=== PATIENT | male | born 1995 | race American Indian/Alaskan Native ===

== ENCOUNTER 2022-09-22 14:20 | Emergency (ER) | payer MEDICAID ==
[~2022-09-22] VITALS: Ht 177.8 cm; Wt 118.0 kg
[2022-09-22 14:49] VITALS: BP 183/109
[2022-09-22] MEDS ORDERED: IBUPROFEN 600MG TABLET PO STA (16:37)
[2022-09-22 17:04] LABS: HEMATOCRIT. 45.8 % (42.0-52.0); HEMOGLOBIN. 16.1 g/dL (14.0-18.0); MEAN CORPUSCULAR VOLUME 88.4 fL (80.0-94.0); MEAN PLATELET VOLUME 7.2 fl (7.4-10.4); PLATELET 468 x1000/uL (130-400); RED BLOOD CELL COUNT 5.18 mill/uL (4.7-6.1); RED CELL DISTRIBUTION WIDTH 13.5 % (11.6-14.6)
[2022-09-22 17:14] LABS: CHLORIDE 102 mEq/L (98-107)
[2022-09-22] MEDS ORDERED: SULF1TAB48 MT (17:30)
[2022-09-22 18:22] LABS: PLATELET ESTIMATE INCREASED
== END 2022-09-22 17:57 | disposition home or self-care (01) ==
LOC: ER 14:20
DX: L02.211 Cutaneous abscess of abdominal wall (principal)
CPT/HCPCS: 36415; 80053; 85025; 99283; Z7610

== ENCOUNTER 2022-12-30 20:02 | Emergency (ER) | payer MEDICAID ==
[~2022-12-30] VITALS: Ht 177.8 cm; Wt 113.0 kg
[~2022-12-30 20:02] MED LIST: SULF1TAB48 MT
[2022-12-30 20:45] VITALS: BP 178/120
[2022-12-30] MEDS ORDERED: TETANUS, DIPHTHERIA, PERTUSSIS VAC/PF 0.5ML (>10YR OLD) IM ONE (22:45)
[2022-12-30] MEDS ORDERED: LIDOCAINE HCL/PF 1% 10 MG/ML 5ML VIAL INFIL ONE (22:45)
[2022-12-30] MEDS ORDERED: BACITRACIN ZINC OINT UDPKT TOP ONE ×2 (22:45→23:15)
[2022-12-31] MEDS ORDERED: IBUP-2029 PO (00:28)
== END 2022-12-31 00:48 | disposition home or self-care (01) ==
LOC: ER 20:02
DX: S61.217A Laceration without foreign body of left little finger without damage to nail, initial encounter (principal); W26.0XXA Contact with knife, initial encounter; Y93.89 Activity, other specified; Y92.89 Other specified places as the place of occurrence of the external cause; Y99.8 Other external cause status
CPT/HCPCS: 12001; 90471; 90715; 99283; J3490; Z7610

== ENCOUNTER 2023-01-11 16:11 | Emergency (ER) | payer MEDICAID ==
[~2023-01-11] VITALS: Ht 175.3 cm; Wt 118.0 kg
[~2023-01-11 16:11] MED LIST changes: +IBUP-2029 PO
[2023-01-11] MEDS ORDERED: IBUPROFEN 600MG TABLET PO STA (17:03)
[2023-01-11 17:19] VITALS: BP 192/115
[2023-01-11] MEDS ORDERED: NAPR-681 PO (18:22)
[2023-01-11] MEDS ORDERED: SULF1TAB48 PO (18:22)
== END 2023-01-11 18:47 | disposition home or self-care (01) ==
LOC: ER 16:11
DX: S61.217D Laceration without foreign body of left little finger without damage to nail, subsequent encounter (principal); Z48.02 Encounter for removal of sutures; X58.XXXD Exposure to other specified factors, subsequent encounter
CPT/HCPCS: 99283

== ENCOUNTER 2023-01-18 04:46 | Emergency (ER) | payer MEDICAID ==
[~2023-01-18] VITALS: Ht 177.8 cm; Wt 95.0 kg
[~2023-01-18 04:46] MED LIST changes: +NAPR-681 PO; +SULF1TAB48 PO
[2023-01-18 04:49] VITALS: BP 121/69
[2023-01-18] MEDS ORDERED: ONDANSETRON HCL 4MG/2ML INJ IV STA (05:10)
[2023-01-18] MEDS ORDERED: SODIUM CHLORIDE 0.9% 1,000 ML IV ONE (05:15)
[2023-01-18 05:42] LABS: HEMATOCRIT. 47.1 % (42.0-52.0); HEMOGLOBIN. 16.3 g/dL (14.0-18.0); MEAN CORPUSCULAR HEMOGLOBIN 31.4 pg (28.0-32.0); MEAN PLATELET VOLUME 7.7 fl (7.4-10.4); PLATELET 220 x1000/uL (130-400); RED BLOOD CELL COUNT 5.18 mill/uL (4.7-6.1); RED CELL DISTRIBUTION WIDTH 14.3 % (11.6-14.6)
[2023-01-18 05:50] LABS: CHLORIDE 99 mEq/L (98-107)
[2023-01-18 05:58] LABS: ETHANOL BLOOD < 10 mg/dL (-10)
[2023-01-18 06:58] LABS: PLATELET ESTIMATE NORMAL
== END 2023-01-18 06:00 | disposition left against medical advice (07) ==
LOC: ER 04:46
DX: N19 Unspecified kidney failure (principal); R11.2 Nausea with vomiting, unspecified
CPT/HCPCS: 36415; 80053; 80320; 83690; 85025; 96361; 96374; 99283; J2405; J7030; Z7610; G0480

== ENCOUNTER 2023-11-07 07:54 | Emergency (ER) | payer MEDICAID ==
[~2023-11-07] VITALS: Ht 175.3 cm; Wt 109.0 kg
[2023-11-07 08:02] VITALS: O2SAT 98
[2023-11-07] MEDS ORDERED: TOPUD MT (10:21)
[2023-11-07 10:41] VITALS: BP 168/95; PULSE 88; RESP 17; TEMP 98
== END 2023-11-07 10:46 | disposition home or self-care (01) ==
LOC: ER 08:15
DX: S91.112A Laceration without foreign body of left great toe without damage to nail, initial encounter (principal); X58.XXXA Exposure to other specified factors, initial encounter; Y93.89 Activity, other specified; Y92.89 Other specified places as the place of occurrence of the external cause; Y99.8 Other external cause status
CPT/HCPCS: 12002; 99282; Z7610